=== PATIENT | female | born 1980 | race American Indian/Alaskan Native ===

== ENCOUNTER 2016-05-25 04:44 | Emergency (ER) | payer SELFPAY ==
[2016-05-25 05:07] VITALS: BP 131/83
== END 2016-05-25 05:05 | disposition left against medical advice (07) ==
LOC: ED 04:44
DX: K04.7 Periapical abscess without sinus (principal); K08.89 Other specified disorders of teeth and supporting structures; Z53.21 Procedure and treatment not carried out due to patient leaving prior to being seen by health care provider